=== PATIENT | female | born 2000 | race Caucasian/White ===

== ENCOUNTER 2025-04-25 08:56 | Outpatient (AMB) | payer BC, SELFPAY ==
[2025-04-25 09:21] VITALS: BP 110/72; PULSE 77; RESP 16; TEMP 36.6; O2SAT 98; BMI 24.6
--- NOTE | 2025-04-25 09:21 | AMB.OBINITIA ---
Vital Signs 04/25/25 09:21 Height 1.73 m Height Method Stated Weight 73.595 kg Weight Measurement Method Standing Scale BMI 24.6 BP 110/72 Blood Pressure Source Automatic Cuff Blood Pressure Location Right Upper Arm Position Sitting Respiration 16 Pulse 77 Pulse Source Monitor Temp 97.8 F Temp Source Oral Pulse Oximetry (%) 98 Oxygen Delivery Method Room Air Allergies/Home Meds Allergies & Medications Allergies No Known Allergies Allergy (Verified 04/25/25 09:23) Medication Reconciliation No Known Home Medications 04/25/25 [History Confirmed 04/25/25] Intake Visit Data Collection New Patient or Established: New Patient (never been to [facility]) Reason for Visit:: INITIAL CARE Seen by Clinical Staff ONLY (RN/MA): No Custom Protection Officer Required: No Do You Feel Safe at Home: Yes Authorities Contacted: N/A PCP or OBGYN visit in last 3 months: Yes Hx Now: Yes Are you currently on any form of Control: No Last menstrual period: 11/27/24 Pain Present Currently: No Pain Scale Used: Farah-Franklin/Numerical Pain scale:: 0 Smoking Status Smoking Status: Never smoker Questionnaires Covid-19 Vaccine Questionnaire Has patient been vacinated for Covid-19 Have you been vacinated for Covid-19: Yes PHQ-9 PHQ-2 Over the last 2 weeks, how often have you been bothered by any of the following problems? 1. Little interest or pleasure in doing things: not at all 2. Feeling down, depressed, or hopeless: not at all Total score: 0 PHQ-9 3. Trouble falling or staying asleep, or sleeping too much: Not at all 4. Feeling tired or having little energy: Not at all 5. Poor appetite or overeating: Not at all 6. Feeling bad about yourself - or that you are a failure or have let yourself or your family down: Not at all 7. Trouble concentrating on things, such as reading the newspaper or watching television: Not at all 8. Moving or speaking so slowly that other people could have noticed? - Or the opposite - being so fidgety or restless that you have been moving around a lot more than usual: not at all 9. Thoughts that you would be better off or of hurting yourself in some way: Not at all Total score: 0 Source: Developed by Drs. Cornelio Boggs, Rody Selby, Obie Veronica and colleagues, with an educational phillip from [employer]. 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 FOB not involved Tobacco History Smoking Status: Never smoker Second Hand Smoke Exposure: No Alcohol History Alcohol Intake: Never Domestic Abuse History Do You Feel Safe at Home: Yes History of Present Illness HPI Narrative The patient is a 25-year-old G2, P0010 presents as a transfer over OB care here . She was seeing a provider in [place] and was not happy with her care. She presents with her sister who was my patient in [place]. Patient states the father the baby is not going to be involved in this but she has good social support. 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 She reports good movement no bleeding no contractions. Her only chronic condition is chronic migraine headaches. Last menstrual period 11/27/2024. She had some type of miscarriage or termination in 2012 at 13 weeks. OB Ultrasound Indication Indication: Position, viability OB Ultrasound Ultrasound technique: transabdominal Gestational sac assessment: Presence, location, size, shape: Live intrauterine in the vertex presentation with cardiac activity noted at 147 bpm placenta anterior fundal OB Initial Visit OB Flowsheet OB Flowsheet Initial Weight: Not Recorded Date <del>?</del> EGA Weight BP Alb Glu CTX Pres Fundal ht FHR Mov Dilation Station Effacement Hx Notes Visit Note 04/25/25 <del>?</del> 21w 2d 73.595 kg 110/72 20 145 Transfer of care. Patient came from [place]. I have a 12-week ultrasound from an [facility] for a normal nuchal translucency and NIPT that is normal. I do not have any other lab work on her. She states it was drawn at [facility] Menstrual History Menstrual reliability: definite Flow: normal Menstrual regularity: regular Monthly: Yes Age at menarche: 13 On control pills at conception: No Other symptoms: VAGINAL DISCHARGE OB History : 2 Hx Total # of Abortions (Spontaneous & Elective): 1 Infection History & Risk Evaluation History of STDs: none Genetic Screening & History Genetic Screening/Teratology Counseling - Includes patient, baby's father, or anyone in either family with: 1. Patient's age 35 years or older as of estimated date of delivery: No 2. Thalassemia (Nauruan, Persian, Mediterranean, or Background); MCV less than 80: No 3. Neural Tube Defect (Meningomyelocele, Spina Bifida, or Anencephaly): No 4. Congenital Heart Defect: No 5. Down Syndrome: No 6. Adelso-Sachs (Ashkenazi Gnosticism, Cajun, Comoran Macedonian): No 7. Ina Disease (Ashkenazi Gnosticism): No 8. Familial Dysautonomia (Ashkenazi Gnosticism): No 9. Sickle Cell Disease or Trait (): No 10. Hemophilia or other blood disorders: No 11. Muscular Dystrophy: No 12. Cystic Fibrosis: No 13. Baker's Chorea: No 14. Mental Retardation/Autism: No 15. Other inherited genetic or chromosomal disorder: No 16. Maternal Metabolic Disorder (EG,TYPE 1 Diabetes, PKU): No 17. Patient or baby's father had a child with defects not listed above: No 18. Recurrent loss or a stillbirth: No 19. Medications (including supplements, vitamins, herbs or otc drugs)/illicit/recreational drugs/alcohol since last menstrual period: No 20. Any other: No Infection History 1. Live with someone with TB or exposed to TB: No 2. Rash or viral illness since last menstrual period: No 3. Hepatitis B,C: No Other (see comments) Source: [employer] Exam General Limitations: no limitations General Appearance: alert, in no apparent distress, comfortable, cooperative, healthy appearing, well developed and well groomed Neck Neck exam: Present normal inspection, full ROM and trachea midline Chest Chest inspection: Present normal inspection and symmetric chest wall rise Resp Respiratory exam: Present normal lung sounds bilaterally Card Cardiovascular exam: Present regular rate, normal rhythm and normal heart sounds Abdominal Abdominal exam: Present soft, normal bowel sounds and other (Fundal height 20) Psych Psychiatric exam: Present normal affect and normal mood Skin Skin exam: Present warm, dry, intact and normal color Office Procedures OB Clinic LOC & Office Proc's Nursing/Assessment Patient Status: Initial/New Patient OB Clinic Nursing Assessment: Medication Reconciliation, Update PMH in EMR and Vital Signs OB Clinic Coordination of Care: Complex Care and Chronic Disease 1-5, Consent,records obtained, informed consent, Education Simp Pt/Fam, Lab and Imaging orders, Results/Orders obtained and Staff clarify orders Special Needs: Heart tones New Patient Charge New Patient Point Assignment: [id number] New Patient Point Charge: HOG PUSHER Level 4 ([id number]) Bedside Ultrasounds US Transabdominal <14 weeks at bedside: Yes Assessment & Plan Diagnosis / Problem List (1) : Status: Acute Qualifiers: Weeks of gestation: 20 weeks Qualified Code(s): Z3A.20 - 20 weeks gestation of
== END 2025-04-25 09:51 | disposition home or self-care (01) ==
LOC: HODSOBC 08:56
PROVIDERS: Supervising Provider Obstetrics & Gynecology; Visit Provider Obstetrics & Gynecology
DX: Z34.82 Encounter for supervision of other normal pregnancy, second trimester (principal); Z3A.21 21 weeks gestation of pregnancy
CPT/HCPCS: 76801; 99204; G0463

== ENCOUNTER 2025-05-24 10:07 | Outpatient (AMB) | payer BC, SELFPAY ==
[2025-05-24 10:12] VITALS: BP 124/77; PULSE 101; RESP 17; TEMP 36.4; O2SAT 98; BMI 26.0
--- NOTE | 2025-05-24 10:12 | AMB.OBVISIT ---
Vital Signs 05/24/25 10:12 Height 1.73 m Height Method Measured Weight 77.791 kg Weight Measurement Method Standing Scale BMI 26.0 BP 124/77 Blood Pressure Source Automatic Cuff Blood Pressure Location Right Upper Arm Position Sitting Respiration 17 Pulse 101 H Pulse Source Monitor Temp 97.5 F Temp Source Temporal Artery Scan Pulse Oximetry (%) 98 Oxygen Delivery Method Room Air Allergies/Home Meds Allergies & Medications Allergies No Known Allergies Allergy (Verified 05/24/25 10:13) Medication Reconciliation mv-mn no.97-folic 180 mcg-dha 25 mg-herb no.293 25 mg chewable tablet (Alive Daily Support ) tab PO 05/24/25 [History Confirmed 05/24/25] Intake Visit Data Collection New Patient or Established: Established Patient (seen at [facility] within 3 years) Reason for Visit:: OBC Consent obtained for Telemed Visit: No Seen by Clinical Staff ONLY (RN/MA): No Cooker Casing Required: No Do You Feel Safe at Home: Yes Authorities Contacted: N/A PCP or OBGYN visit in last 3 months: Yes Date of Last PCP or OBGYN visit: 04/25/25 Hx Now: Yes Are you currently on any form of Control: No Pain Present Currently: No Pain Scale Used: Farah-Franklin/Numerical Pain scale:: 0 Smoking Status Smoking Status: Never smoker Questionnaires Covid-19 Vaccine Questionnaire Has patient been vacinated for Covid-19 Have you been vacinated for Covid-19: No PHQ-9 PHQ-2 Over the last 2 weeks, how often have you been bothered by any of the following problems? 1. Little interest or pleasure in doing things: not at all PHQ-9 8. Moving or speaking so slowly that other people could have noticed? - Or the opposite - being so fidgety or restless that you have been moving around a lot more than usual: not at all Source: Developed by Drs. Cornelio Boggs, Rody Selby, Obie Veronica and colleagues, with an educational phillip from [employer]. 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 Patient came from [place]. I have a 12-week ultrasound from an [facility] for a normal nuchal translucency and NIPT that is normal. I do not have any other lab work on her. She states it was drawn at [facility]. 05/24/25 <del>?</del> 25w 3d 77.791 kg 124/77 25 140 active Positive movement no contractions no loss some labs on the chart from [facility]. Do not have structural survey report from [place] at [facility]. PAUL Calculator Estimated Delivery Date Method Current WG Current Estimate 09/03/25 Ultrasound #1 25w 3d Other Estimates 09/03/25 LMP (Certain) 25w 3d Specific Issue/Plans -0-1-0 Notes Visit Date: 05/24/25 Last Updated by: Andria Corea (OB Clinic)MD Notes on the chart from [facility] reviewed today: A+/ all thyroid normal hemoglobin was 12.7 GC chlamydia negative Visit Date: 04/25/25 Last Updated by: Andria Corea (OB Clinic)MD Father patient is a -0-1-0 status post SAB versus TAB at 13 weeks in the past. 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 She has good social support with her family and her sisters. I do not have any labs on her except for a normal NIPT and a normal 12-week NT. Office Procedures OB Clinic LOC & Office Proc's Nursing/Assessment Patient Status: Established Patient OB Clinic Nursing Assessment: Medication Reconciliation, Update PMH in EMR and Vital Signs OB Clinic Coordination of Care: Complex Care and Chronic Disease 1-5, Consent,records obtained, informed consent, Lab and Imaging orders and Results/Orders obtained Special Needs: Heart tones Established Patient Charge Established Patient Point Assignment: 110 Established Patient Point Charge: EP Level 3 (80-115) Assessment & Plan Diagnosis / Problem List (1) : Status: Acute Qualifiers: Weeks of gestation: 25 weeks Qualified Code(s): Z3A.25 - 25 weeks gestation of Assessment and Plan: Need all labs ordered. Need glucose challenge test ordered continued results from [place] [facility] on 20-week ultrasound. She did have an NIPT that is 46 XY.
== END 2025-05-24 10:35 | disposition home or self-care (01) ==
LOC: HODSOBC 10:07
PROVIDERS: Supervising Provider Obstetrics & Gynecology; Visit Provider Obstetrics & Gynecology
DX: Z34.82 Encounter for supervision of other normal pregnancy, second trimester (principal); Z3A.25 25 weeks gestation of pregnancy
CPT/HCPCS: 99213; G0463

== ENCOUNTER 2025-06-22 14:47 | Outpatient (AMB) | payer BC, SELFPAY ==
[2025-06-22 15:16] VITALS: BP 119/73; PULSE 91; RESP 17; TEMP 36.5; O2SAT 98; BMI 27.4
--- NOTE | 2025-06-22 15:16 | OBCLNT_ITS ---
Vital Signs 06/22/25 15:16 Height 1.73 m Height Method Stated Weight 82.27 kg Weight Measurement Method Standing Scale BMI 27.4 BP 119/73 Blood Pressure Source Automatic Cuff Blood Pressure Location Right Upper Arm Position Sitting Respiration 17 Pulse 91 Pulse Source Monitor Temp 97.7 F Temp Source Temporal Artery Scan Pulse Oximetry (%) 98 Oxygen Delivery Method Room Air Allergies/Home Meds Allergies & Medications Allergies No Known Allergies Allergy (Verified 06/22/25 15:18) Medication Reconciliation mv-mn no.97-folic 180 mcg-dha 25 mg-herb no.293 25 mg chewable tablet (Alive Daily Support ) tab PO 05/24/25 [History Confirmed 06/22/25] Intake Visit Data Collection New Patient or Established: Established Patient (seen at [facility] within 3 years) Reason for Visit:: OBC 29W4D Seen by Clinical Staff ONLY (RN/MA): No Tower Control Operator Required: No Do You Feel Safe at Home: Yes Authorities Contacted: N/A PCP or OBGYN visit in last 3 months: Yes Date of Last PCP or OBGYN visit: 05/24/25 Hx Now: Yes Are you currently on any form of Control: No Pain Present Currently: No Pain Scale Used: Farah-Franklin/Numerical Pain scale:: 0 Smoking Status Smoking Status: Never smoker Questionnaires Covid-19 Vaccine Questionnaire Has patient been vacinated for Covid-19 Have you been vacinated for Covid-19: No PHQ-9 PHQ-2 Over the last 2 weeks, how often have you been bothered by any of the following problems? 1. Little interest or pleasure in doing things: not at all 2. Feeling down, depressed, or hopeless: not at all Total score: 0 PHQ-9 3. Trouble falling or staying asleep, or sleeping too much: Not at all 4. Feeling tired or having little energy: Not at all 5. Poor appetite or overeating: Not at all 6. Feeling bad about yourself - or that you are a failure or have let yourself or your family down: Not at all 7. Trouble concentrating on things, such as reading the newspaper or watching television: Not at all 8. Moving or speaking so slowly that other people could have noticed? - Or the opposite - being so fidgety or restless that you have been moving around a lot more than usual: not at all 9. Thoughts that you would be better off or of hurting yourself in some way: Not at all Total score: 0 If you checked off any problems, how difficult have these problems made it for you to do your work, take care of things at home, or get along with other people?: not difficult at all Source: Developed by Drs. Cornelio Boggs, Rody Selby, Obie Veronica and colleagues, with an educational phillip from [employer]. 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 Patient came from [place]. I have a 12-week ultrasound from an [facility] for a normal nuchal translucency and NIPT that is normal. I do not have any other lab work on her. She states it was drawn at [facility]. 05/24/25 -?-?-?-?-?-?-?-?-?-?-?-?- 25w 3d 77.791 kg 124/77 25 140 active Positive movement no contractions no loss some labs on the chart from [facility]. Do not have structural survey report from [place] at [facility]. 06/22/25 -?-?-?-?-?-?-?-?-?-?-?-?- 29w 4d 82.27 kg 119/73 29 137 active Patient present with her mother today. Good movem ent no contractions no loss of fluids PAUL Calculator Estimated Delivery Date Method Current WG Current Estimate 09/03/25 Ultrasound #1 29w 4d Other Estimates 09/03/25 LMP (Certain) 29w 4d Expected Delivery Route/Plan Unexpected FOB not involved Good social support with her sister and her mother Patient wants to try to go natural labor without an epidural. Specific Issue/Plans -0-1-0 First visit at about 12 weeks in [place]. Notes Visit Date: 06/22/25 Last Updated by: Andria Corea (OB Clinic)MD Patient states she wants to go natural in labor. Discussed natural labor/ Hep-Lock/ ambulating/ labor ball. Also discussed being flexible in labor. Discussed epidural and side effects also fentanyl for pain control in labor. Patient will get her glucose test. As her first doctor in [place] for some reason did not order all her labs except a blood type and thyroid levels and hemoglobin A1c and GC chlamydia, I will reorder all missing labs at [facility]. I will perform an ultrasound approximately 36 weeks to check size. I was able to get a hold of her ultrasound from [facility] revealing on 04/26/2025 revealing a live IUP 20 weeks 5 days EDC 09/08/2025. Visit Date: 05/24/25 Last Updated by: Andria Corea (OB Clinic)MD Notes on the chart from [facility] reviewed today: A+/ all thyroid normal hemoglobin was 12.7 GC chlamydia negative Visit Date: 04/25/25 Last Updated by: Andria Corea (OB Clinic)MD Father patient is a -0-1-0 status post SAB versus TAB at 13 weeks in the past. 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 She has good social support with her family and her sisters. I do not have any labs on her except for a normal NIPT and a normal 12-week NT. Office Procedures OB Clinic LOC & Office Proc's Nursing/Assessment Patient Status: Established Patient OB Clinic Nursing Assessment: Medication Reconciliation, Update PMH in EMR and Vital Signs OB Clinic Coordination of Care: Complex Care and Chronic Disease 1-5, Consent,records obtained, informed consent, Education Simp Pt/Fam and Staff clarify orders Special Needs: Heart tones Established Patient Charge Established Patient Point Assignment: 115 Established Patient Point Charge: EP Level 3 (80-115)
== END 2025-06-22 15:58 | disposition home or self-care (01) ==
LOC: HODSOBC 14:47
PROVIDERS: PCP Obstetrics & Gynecology; Referring Provider Obstetrics & Gynecology; Supervising Provider Obstetrics & Gynecology; Visit Provider Obstetrics & Gynecology
DX: Z34.83 Encounter for supervision of other normal pregnancy, third trimester (principal); Z3A.29 29 weeks gestation of pregnancy
CPT/HCPCS: 99213; G0463

== ENCOUNTER 2025-07-06 14:01 | Outpatient (AMB) | payer BC, SELFPAY ==
[2025-07-06 14:07] VITALS: BP 123/77; PULSE 104; RESP 17; TEMP 36.6; O2SAT 97; BMI 27.7
--- NOTE | 2025-07-06 14:07 | AMB.OBVISIT ---
Vital Signs 07/06/25 14:07 Height 1.73 m Height Method Measured Weight 83.007 kg Weight Measurement Method Standing Scale BMI 27.7 BP 123/77 Blood Pressure Source Automatic Cuff Blood Pressure Location Right Upper Arm Position Sitting Respiration 17 Pulse 104 H Pulse Source Monitor Temp 97.8 F Temp Source Temporal Artery Scan Pulse Oximetry (%) 97 Oxygen Delivery Method Room Air Allergies/Home Meds Allergies & Medications Allergies No Known Allergies Allergy (Verified 07/06/25 14:08) Medication Reconciliation mv-mn no.97-folic 180 mcg-dha 25 mg-herb no.293 25 mg chewable tablet (Alive Daily Support ) tab PO 05/24/25 [History Confirmed 07/06/25] Intake Visit Data Collection New Patient or Established: Established Patient (seen at [facility] within 3 years) Reason for Visit:: OBC Consent obtained for Telemed Visit: No Seen by Clinical Staff ONLY (RN/MA): No Steeler Required: No Do You Feel Safe at Home: Yes Authorities Contacted: N/A PCP or OBGYN visit in last 3 months: Yes Date of Last PCP or OBGYN visit: 06/22/25 Hx Now: Yes Are you currently on any form of Control: No Pain Present Currently: No Pain Scale Used: Farah-Franklin/Numerical Pain scale:: 0 Smoking Status Smoking Status: Never smoker Questionnaires PHQ-9 PHQ-2 Over the last 2 weeks, how often have you been bothered by any of the following problems? 1. Little interest or pleasure in doing things: not at all PHQ-9 8. Moving or speaking so slowly that other people could have noticed? - Or the opposite - being so fidgety or restless that you have been moving around a lot more than usual: not at all Source: Developed by Drs. Cornelio Boggs, Rody Selby, Obie Veronica and colleagues, with an educational phillip from [employer]. 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 Patient came from [place]. I have a 12-week ultrasound from an [facility] for a normal nuchal translucency and NIPT that is normal. I do not have any other lab work on her. She states it was drawn at [facility]. 05/24/25 <del>?</del> 25w 3d 77.791 kg 124/77 25 140 active Positive movement no contractions no loss some labs on the chart from [facility]. Do not have structural survey report from [place] at [facility]. 06/22/25 <del>?</del> 29w 4d 82.27 kg 119/73 29 137 active Patient present with her mother today. Good movement no contractions no loss of fluids 07/06/25 <del>?</del> 31w 4d 83.007 kg 123/77 31 145 active Good movement. No contractions no bleeding Patient will have her mother and possibly assist her in labor with her. PAUL Calculator Estimated Delivery Date Method Current WG Current Estimate 09/03/25 Ultrasound #1 31w 4d Other Estimates 09/03/25 LMP (Certain) 31w 4d Expected Delivery Route/Plan Unexpected FOB not involved Good social support with her sister and her mother Patient wants to try to go natural labor without an epidural. Specific Issue/Plans -0-1-0 First visit at about 12 weeks in [place]. A positive\antibody negative\thyroid levels normal\GC negative\chlamydia negative\[place] [facility] 04/26/2025 live IUP 20 weeks 5 days EDC 09/08/2025 Notes Visit Date: 07/06/25 Last Updated by: Andria Corea (OB Clinic)MD Patient tried to get her labs done at [facility] and could not get in twice. She made an appointment for an week to get her 1 hour glucose done and all her labs done. She will be approximately 32 weeks by then. Visit Date: 06/22/25 Last Updated by: Andria Corea (OB Clinic)MD Patient states she wants to go natural in labor. Discussed natural labor/ Hep-Lock/ ambulating/ labor ball. Also discussed being flexible in labor. Discussed epidural and side effects also fentanyl for pain control in labor. Patient will get her glucose test. As her first doctor in [place] for some reason did not order all her labs except a blood type and thyroid levels and hemoglobin A1c and GC chlamydia, I will reorder all missing labs at [facility]. I will perform an ultrasound approximately 36 weeks to check size. I was able to get a hold of her ultrasound from [facility] revealing on 04/26/2025 revealing a live IUP 20 weeks 5 days EDC 09/08/2025. Visit Date: 05/24/25 Last Updated by: Andria Corea (OB Clinic)MD Notes on the chart from [facility] reviewed today: A+/ all thyroid normal hemoglobin was 12.7 GC chlamydia negative Visit Date: 04/25/25 Last Updated by: Andria Corea (OB Clinic)MD Father patient is a -0-1-0 status post SAB versus TAB at 13 weeks in the past. 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 She has good social support with her family and her sisters. I do not have any labs on her except for a normal NIPT and a normal 12-week NT. Office Procedures OB Clinic LOC & Office Proc's Nursing/Assessment Patient Status: Established Patient OB Clinic Nursing Assessment: Medication Reconciliation, Update PMH in EMR and Vital Signs OB Clinic Coordination of Care: Complex Care and Chronic Disease 1-5, Consent,records obtained, informed consent, Education Simp Pt/Fam and Results/Orders obtained Special Needs: Heart tones Established Patient Charge Established Patient Point Assignment: 110 Established Patient Point Charge: EP Level 3 (80-115)
== END 2025-07-06 14:38 | disposition home or self-care (01) ==
LOC: HODSOBC 14:01
PROVIDERS: Supervising Provider Obstetrics & Gynecology; Visit Provider Obstetrics & Gynecology
DX: Z34.83 Encounter for supervision of other normal pregnancy, third trimester (principal); Z3A.31 31 weeks gestation of pregnancy
CPT/HCPCS: 99213; G0463

== ENCOUNTER 2025-07-20 13:12 | Outpatient (AMB) | payer BC, SELFPAY ==
[2025-07-20 13:21] VITALS: BP 112/70; PULSE 98; RESP 18; TEMP 36.3; O2SAT 98; BMI 28.3
--- NOTE | 2025-07-20 13:21 | AMB.OBVISIT ---
Vital Signs 07/20/25 13:21 Height 1.73 m Height Method Stated Weight 84.822 kg Weight Measurement Method Standing Scale BMI 28.3 BP 112/70 Blood Pressure Source Automatic Cuff Blood Pressure Location Left Upper Arm Position Sitting Respiration 18 Pulse 98 Pulse Source Monitor Temp 97.4 F Temp Source Oral Pulse Oximetry (%) 98 Oxygen Delivery Method Room Air Allergies/Home Meds Allergies & Medications Allergies No Known Allergies Allergy (Verified 07/20/25 13:22) Medication Reconciliation mv-mn no.97-folic 180 mcg-dha 25 mg-herb no.293 25 mg chewable tablet (Alive Daily Support ) tab PO 05/24/25 [History Confirmed 07/20/25] Intake Visit Data Collection New Patient or Established: Established Patient (seen at [facility] within 3 years) Reason for Visit:: CARE Seen by Clinical Staff ONLY (RN/MA): No Register Clerk Required: No Do You Feel Safe at Home: Yes Authorities Contacted: N/A PCP or OBGYN visit in last 3 months: Yes Hx Now: Yes Are you currently on any form of Control: No Pain Present Currently: No Pain Scale Used: Farah-Franklin/Numerical Pain scale:: 0 Smoking Status Smoking Status: Never smoker Questionnaires Covid-19 Vaccine Questionnaire Has patient been vacinated for Covid-19 Have you been vacinated for Covid-19: Yes PHQ-9 PHQ-2 Over the last 2 weeks, how often have you been bothered by any of the following problems? 1. Little interest or pleasure in doing things: not at all 2. Feeling down, depressed, or hopeless: not at all Total score: 0 PHQ-9 3. Trouble falling or staying asleep, or sleeping too much: Not at all 4. Feeling tired or having little energy: Not at all 5. Poor appetite or overeating: Not at all 6. Feeling bad about yourself - or that you are a failure or have let yourself or your family down: Not at all 7. Trouble concentrating on things, such as reading the newspaper or watching television: Not at all 8. Moving or speaking so slowly that other people could have noticed? - Or the opposite - being so fidgety or restless that you have been moving around a lot more than usual: not at all 9. Thoughts that you would be better off or of hurting yourself in some way: Not at all Total score: 0 Source: Developed by Drs. Cornelio Boggs, Rody Selby, Obie Veronica and colleagues, with an educational phillip from [employer]. 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 Patient came from [place]. I have a 12-week ultrasound from an [facility] for a normal nuchal translucency and NIPT that is normal. I do not have any other lab work on her. She states it was drawn at [facility]. 05/24/25 <del>?</del> 25w 3d 77.791 kg 124/77 25 140 active Positive movement no contractions no loss some labs on the chart from [facility]. Do not have structural survey report from [place] at [facility]. 06/22/25 <del>?</del> 29w 4d 82.27 kg 119/73 29 137 active Patient present with her mother today. Good movement no contractions no loss of fluids 07/06/25 <del>?</del> 31w 4d 83.007 kg 123/77 31 145 active Good movement. No contractions no bleeding Patient will have her mother and possibly assist her in labor with her. 07/20/25 <del>?</del> 33w 4d 84.822 kg 112/70 absent 34 145 active Good movement no contractions no loss of fluids Patient's mother and sister will be in labor with her. PAUL Calculator Estimated Delivery Date Method Current WG Current Estimate 09/03/25 Ultrasound #1 33w 4d Other Estimates 09/03/25 LMP (Certain) 33w 4d Expected Delivery Route/Plan Unexpected FOB not involved Good social support with her sister and her mother Patient wants to try to go natural labor without an epidural. Specific Issue/Plans -0-1-0 First visit at about 12 weeks in [place]. A positive\antibody negative\thyroid levels normal\GC negative\chlamydia negative\[place] [facility] 04/26/2025 live IUP 20 weeks 5 days EDC 09/08/2025 1 hour glucose 131/rubella immune/RPR nonreactive/HIV negative/hepatitis B surface antigen negative/hepatitis C negative Notes Visit Date: 07/20/25 Last Updated by: Andria Corea (OB Clinic)MD Patient told me her mother has metastatic breast cancer with recurrence. Her mother was checked for BRCA1 BRCA2 and is negative. Her labs from [facility] are reviewed with her. These are dated from 825 her glucose 1 hour is 131 she is rubella immune RPR nonreactive HIV negative hepatitis B surface antigen negative and hepatitis C negative. 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 She has 1-2+ pedal edema. Preeclamptic signs and symptoms were discussed in detail. Visit Date: 07/06/25 Last Updated by: Andria Corea (OB Clinic)MD Patient tried to get her labs done at [facility] and could not get in twice. She made an appointment for an week to get her 1 hour glucose done and all her labs done. She will be approximately 32 weeks by then. Visit Date: 06/22/25 Last Updated by: Andria Corea (OB Clinic)MD Patient states she wants to go natural in labor. Discussed natural labor/ Hep-Lock/ ambulating/ labor ball. Also discussed being flexible in labor. Discussed epidural and side effects also fentanyl for pain control in labor. Patient will get her glucose test. As her first doctor in [place] for some reason did not order all her labs except a blood type and thyroid levels and hemoglobin A1c and GC chlamydia, I will reorder all missing labs at [facility]. I will perform an ultrasound approximately 36 weeks to check size. I was able to get a hold of her ultrasound from [facility] revealing on 04/26/2025 revealing a live IUP 20 weeks 5 days EDC 09/08/2025. Visit Date: 05/24/25 Last Updated by: Andria Corea (OB Clinic)MD Notes on the chart from [facility] reviewed today: A+/ all thyroid normal hemoglobin was 12.7 GC chlamydia negative Visit Date: 04/25/25 Last Updated by: Andria Corea (OB Clinic)MD Father patient is a -0-1-0 status post SAB versus TAB at 13 weeks in the past. 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 Father the baby will not be involved in [place]. She has good social support with her family and her sisters. I do not have any labs on her except for a normal NIPT and a normal 12-week NT. Office Procedures OB Clinic LOC & Office Proc's Nursing/Assessment Patient Status: Established Patient OB Clinic Nursing Assessment: Medication Reconciliation, Update PMH in EMR and Vital Signs OB Clinic Coordination of Care: Complex Care and Chronic Disease 1-5, Consent,records obtained, informed consent, Education Simp Pt/Fam, Lab and Imaging orders, Results/Orders obtained and Staff clarify orders Special Needs: Heart tones Established Patient Charge Established Patient Point Assignment: 135 Established Patient Point Charge: EP Level 4 (120-155) Assessment & Plan Diagnosis / Problem List (1) : Status: Acute Qualifiers: Weeks of gestation: 33 weeks Qualified Code(s): Z3A.33 - 33 weeks gestation of Plan: All lab work up-to-date. Orders ultrasound in [facility] imaging to check size and dates in 2 weeks. Additional Plan Follow Up: 2 Weeks
== END 2025-07-20 14:09 | disposition home or self-care (01) ==
LOC: HODSOBC 13:12
PROVIDERS: Supervising Provider Obstetrics & Gynecology; Visit Provider Obstetrics & Gynecology
DX: Z34.83 Encounter for supervision of other normal pregnancy, third trimester (principal); Z3A.33 33 weeks gestation of pregnancy
CPT/HCPCS: 99214; G0463

== ENCOUNTER 2025-08-03 14:46 | Outpatient (AMB) | payer BC, SELFPAY ==
[2025-08-03 15:02] VITALS: BP 112/74; PULSE 91; RESP 18; TEMP 36.7; O2SAT 98; BMI 29.0
--- NOTE | 2025-08-03 15:02 | OBCLNT_ITS ---
Vital Signs 08/03/25 15:02 Height 1.73 m Height Method Stated Weight 86.806 kg Weight Measurement Method Standing Scale BMI 29.0 BP 112/74 Blood Pressure Source Automatic Cuff Blood Pressure Location Left Upper Arm Position Sitting Respiration 18 Pulse 91 Pulse Source Monitor Temp 98.1 F Temp Source Oral Pulse Oximetry (%) 98 Oxygen Delivery Method Room Air Allergies/Home Meds Allergies & Medications Allergies No Known Allergies Allergy (Verified 08/03/25 15:03) Medication Reconciliation No Known Home Medications 08/03/25 [History Confirmed 08/03/25] Intake Visit Data Collection New Patient or Established: Established Patient (seen at [facility] within 3 years) Reason for Visit:: CARE Seen by Clinical Staff ONLY (RN/MA): No Merchandising Manager Required: No Do You Feel Safe at Home: Yes Authorities Contacted: N/A PCP or OBGYN visit in last 3 months: Yes Hx Now: Yes Are you currently on any form of Control: No Pain Present Currently: No Pain Scale Used: Farah-Franklin/Numerical Pain scale:: 0 Smoking Status Smoking Status: Never smoker Questionnaires Covid-19 Vaccine Questionnaire Has patient been vacinated for Covid-19 Have you been vacinated for Covid-19: Yes PHQ-9 PHQ-2 Over the last 2 weeks, how often have you been bothered by any of the following problems? 1. Little interest or pleasure in doing things: not at all 2. Feeling down, depressed, or hopeless: not at all Total score: 0 PHQ-9 3. Trouble falling or staying asleep, or sleeping too much: Not at all 4. Feeling tired or having little energy: Not at all 5. Poor appetite or overeating: Not at all 6. Feeling bad about yourself - or that you are a failure or have let yourself or your family down: Not at all 7. Trouble concentrating on things, such as reading the newspaper or watching television: Not at all 8. Moving or speaking so slowly that other people could have noticed? - Or the opposite - being so fidgety or restless that you have been moving around a lot more than usual: not at all 9. Thoughts that you would be better off or of hurting yourself in some way: Not at all Total score: 0 Source: Developed by Drs. Cornelio Boggs, Rody Selby, Obie Veronica and colleagues, with an educational phillip from [employer]. 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 Patient came from [place]. I have a 12-week ultrasound from an [facility] for a normal nuchal translucency and NIPT that is normal. I do not have any other lab work on her. She states it was drawn at [facility]. 05/24/25 -?-?-?-?-?-?-?-?-?-?-?-?- 25w 3d 77.791 kg 124/77 25 140 active Positive movement no contractions no loss some labs on the chart from [facility]. Do not have structural survey report from [place] at [facility]. 06/22/25 -?-?-?-?-?-?-?-?-?-?-?-?- 29w 4d 82.27 kg 119/73 29 137 active Patient present with her mother today. Good movem ent no contractions no loss of fluids 07/06/25 -?-?-?-?-?-?-?-?-?-?-?-?- 31w 4d 83.007 kg 123/77 31 145 active Good movement. No contractions no bleeding Patient will have her mother and possibly assist her in labor with her. 07/20/25 -?-?-?-?-?-?-?-?-?-?-?-?- 33w 4d 84.822 kg 112/70 absent 34 145 ac tive Good movement no contractions no loss of fluids P philip's mother and sister will be in labor with her. 08/03/25 -?-?-?-?-?-?-?-?-?-?-?-?- 35w 4d 86.806 kg 112/74 occasional 35 165 active Good movement no contractions or loss of fluids P philip is a bit congested PAUL Calculator Estimated Delivery Date Method Current WG Current Estimate 09/03/25 Ultrasound #1 35w 4d Other Estimates 09/03/25 LMP (Certain) 35w 4d Expected Delivery Route/Plan Unexpected FOB not involved Good social support with her sister and her mother Patient wants to try to go natural labor without an epidural. Specific Issue/Plans -0-1-0 First visit at about 12 weeks in [place]. A +\antibody negative\thyroid levels normal\GC negative\chlamydia negative\ [place] [facility] 04/26/2025 live IUP 20 weeks 5 days EDC 09/08/2025 1 hour glucose 131/rubella immune/RPR nonreactive/HIV negative/hepatitis B surface antigen negative/hepatitis C negative Notes Visit Date: 08/03/25 Last Updated by: Andria Corea (OB Clinic)MD The patient states her nose is stuffy and it is hard for her to sleep secondary to congestion. We did discuss taking Benadryl before bed and using Flonase. Patient did not want to not want to try anything before talking to me. If she is has seasonal allergies that she can take a Claritin-D daily. During the day if she does not have allergies she could try Sudafed. She denies fevers chills or cough. Visit Date: 07/20/25 Last Updated by: Andria Corea (OB Clinic)MD Patient told me her mother has metastatic breast cancer with recurrence. Her mother was checked for BRCA1 BRCA2 and is negative. Her labs from [facility] are reviewed with her. These are dated from 825 her glucose 1 hour is 131 she is rubella immune RPR nonreactive HIV negative hepatitis B surface antigen negative and hepatitis C negative. 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 She has 1-2+ pedal edema. Preeclamptic signs and symptoms were discussed in detail. Visit Date: 07/06/25 Last Updated by: Andria Corea (OB Clinic)MD Patient tried to get her labs done at [facility] and could not get in twice. She made an appointment for an week to get her 1 hour glucose done and all her labs done. She will be approximately 32 weeks by then. Visit Date: 06/22/25 Last Updated by: Andria Corea (OB Clinic)MD Patient states she wants to go natural in labor. Discussed natural labor/ Hep-Lock/ ambulating/ labor ball. Also discussed being flexible in labor. Discussed epidural and side effects also fentanyl for pain control in labor. Patient will get her glucose test. As her first doctor in [place] for some reason did not order all her labs except a blood type and thyroid levels and hemoglobin A1c and GC chlamydia, I will reorder all missing labs at [facility]. I will perform an ultrasound approximately 36 weeks to check size. I was able to get a hold of her ultrasound from [facility] revealing on 04/26/2025 revealing a live IUP 20 weeks 5 days EDC 09/08/2025. Visit Date: 05/24/25 Last Updated by: Andria Corea (OB Clinic)MD Notes on the chart from [facility] reviewed today: A+/ all thyroid normal hemoglobin was 12.7 GC chlamydia negative Visit Date: 04/25/25 Last Updated by: Andria Corea (OB Clinic)MD Father patient is a -0-1-0 status post SAB versus TAB at 13 weeks in the past. 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 Father the baby will not be involved in [place]. She has good social support with her family and her sisters. I do not have any labs on her except for a normal NIPT and a normal 12-week NT. Office Procedures OB Clinic LOC & Office Proc's Nursing/Assessment Patient Status: Established Patient OB Clinic Nursing Assessment: Medication Reconciliation, Update PMH in EMR and Vital Signs OB Clinic Coordination of Care: Complex Care and Chronic Disease 1-5, Consent,records obtained, informed consent, Education Simp Pt/Fam, Lab and Imaging orders, Results/Orders obtained and Staff clarify orders Special Needs: Heart tones Established Patient Charge Established Patient Point Assignment: 135 Established Patient Point Charge: EP Level 4 (120-155) Assessment & Plan Diagnosis / Problem List (1) : Status: Acute Qualifiers: Weeks of gestation: 35 weeks Qualified Code(s): Z3A.35 - 35 weeks gestation of
== END 2025-08-03 16:19 | disposition home or self-care (01) ==
LOC: HODSOBC 14:46
PROVIDERS: Supervising Provider Obstetrics & Gynecology; Visit Provider Obstetrics & Gynecology
DX: O09.893 Supervision of other high risk pregnancies, third trimester (principal); O99.891 Other specified diseases and conditions complicating pregnancy; R09.81 Nasal congestion; Z3A.35 35 weeks gestation of pregnancy
CPT/HCPCS: 99214; G0463

== ENCOUNTER 2025-08-12 15:06 | Outpatient (AMB) | payer BC, SELFPAY ==
[2025-08-12 15:19] VITALS: BP 126/80; PULSE 80; RESP 16; TEMP 36.8; O2SAT 98; BMI 29.1
--- NOTE | 2025-08-12 15:19 | OBCLNT_ITS ---
Vital Signs 08/12/25 15:19 Height 1.73 m Height Method Stated Weight 87.146 kg Weight Measurement Method Standing Scale BMI 29.1 BP 126/80 Blood Pressure Source Automatic Cuff Blood Pressure Location Left Upper Arm Position Sitting Respiration 16 Pulse 80 Pulse Source Monitor Temp 98.2 F Temp Source Oral Pulse Oximetry (%) 98 Oxygen Delivery Method Room Air Allergies/Home Meds Allergies & Medications Allergies No Known Allergies Allergy (Verified 08/12/25 15:20) Medication Reconciliation No Known Home Medications 08/03/25 [History Confirmed 08/12/25] Intake Visit Data Collection New Patient or Established: Established Patient (seen at [facility] within 3 years) Reason for Visit:: OBC Surveillance Sensor Officer Required: No Do You Feel Safe at Home: Yes Authorities Contacted: N/A PCP or OBGYN visit in last 3 months: Yes Date of Last PCP or OBGYN visit: 08/03/25 Hx Now: Yes Are you currently on any form of Control: No Pain Present Currently: No Pain Scale Used: Farah-Franklin/Numerical Pain scale:: 0 Smoking Status Smoking Status: Never smoker Questionnaires Covid-19 Vaccine Questionnaire Has patient been vacinated for Covid-19 Have you been vacinated for Covid-19: Yes PHQ-9 PHQ-2 Over the last 2 weeks, how often have you been bothered by any of the following problems? 1. Little interest or pleasure in doing things: not at all 2. Feeling down, depressed, or hopeless: not at all Total score: 0 PHQ-9 3. Trouble falling or staying asleep, or sleeping too much: Not at all 4. Feeling tired or having little energy: Not at all 5. Poor appetite or overeating: Not at all 6. Feeling bad about yourself - or that you are a failure or have let yourself or your family down: Not at all 7. Trouble concentrating on things, such as reading the newspaper or watching television: Not at all 8. Moving or speaking so slowly that other people could have noticed? - Or the opposite - being so fidgety or restless that you have been moving around a lot more than usual: not at all 9. Thoughts that you would be better off or of hurting yourself in some way: Not at all Total score: 0 If you checked off any problems, how difficult have these problems made it for you to do your work, take care of things at home, or get along with other people?: not difficult at all Source: Developed by Drs. Cornelio Boggs, Rody Selby, Obie Veronica and colleagues, with an educational phillip from [employer]. 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 FOB not involved Tobacco History Smoking Status: Never smoker Second Hand Smoke Exposure: No Alcohol History Alcohol Intake: Never Domestic Abuse History Do You Feel Safe at Home: Yes Care OB Visit Log OB Flowsheet Initial Weight: Not Recorded Date -?-?-?-?-?-?-?-?-?-?-?-?- EGA Weight BP Alb Glu CTX Pres Fundal ht FHR Mov Dilation Station Effacement Hx Notes Visit Note 04/25/25 -?-?-?-?-?-?-?-?-?-?-?-?- 21w 2d 73.595 kg 110/72 20 145 Transfer of care. Patient came from [place]. I have a 12-week ultrasound from an [facility] for a normal nuchal translucency and NIPT that is normal. I do not have any other lab work on her. She states it was drawn at [email or web address]. 05/24/25 -?-?-?-?-?-?-?-?-?-?-?-?- 25w 3d 77.791 kg 124/77 25 140 active Positive movement no contractions no loss some labs on the chart from [email or web address]. Do not have structural survey report from Chris at [facility]. 06/22/25 -?-?-?-?-?-?-?-?-?-?-?-?- 29w 4d 82.27 kg 119/73 29 137 active Patient present with her mother today. Good movem ent no contractions no loss of fluids 07/06/25 -?-?-?-?-?-?-?-?-?-?-?-?- 31w 4d 83.007 kg 123/77 31 145 active Good movement. No contractions no bleeding Patient will have her mother and possibly assist her in labor with her. 07/20/25 -?-?-?-?-?-?-?-?-?-?-?-?- 33w 4d 84.822 kg 112/70 absent 34 145 ac tive Good movement no contractions no loss of fluids P philip's mother and sister will be in labor with her. 08/03/25 -?-?-?-?-?-?-?-?-?-?-?-?- 35w 4d 86.806 kg 112/74 occasional 35 165 active Good movement no contractions or loss of fluids P philip is a bit congested 08/12/25 -?-?-?-?-?-?-?-?-?-?-?-?- 36w 6d 87.146 kg 126/80 occasional 37 167 active 1 -2 75 Good movement no contractions or vaginal bleeding Good movement no contractions or vaginal bleeding GB BS cx done Discussed labor and kick counts. PAUL Calculator Estimated Delivery Date Method Current WG Current Estimate 09/03/25 Ultrasound #1 36w 6d Other Estimates 09/03/25 LMP (Certain) 36w 6d Expected Delivery Route/Plan Unexpected FOB not involved Good social support with her sister and her mother Patient wants to try to go natural labor without an epidural. Specific Issue/Plans -0-1-0 First visit at about 12 weeks in [place]. A +\antibody negative\thyroid levels normal\GC negative\chlamydia negative\[place] [facility] 04/26/2025 live IUP 20 weeks 5 days EDC 09/08/2025 1 hour glucose 131/rubella immune/RPR nonreactive/HIV negative/hepatitis B surface antigen negative/hepatitis C negative Notes Visit Date: 08/03/25 Last Updated by: Andria Corea (OB Clinic)MD The patient states her nose is stuffy and it is hard for her to sleep secondary to congestion. We did discuss taking Benadryl before bed and using Flonase. Patient did not want to not want to try anything before talking to me. If she is has seasonal allergies that she can take a Claritin-D daily. During the day if she does not have allergies she could try Sudafed. She denies fevers chills or cough. Visit Date: 07/20/25 Last Updated by: Andria Corea (OB Clinic)MD Patient told me her mother has metastatic breast cancer with recurrence. Her mother was checked for BRCA1 BRCA2 and is negative. Her labs from [facility] are reviewed with her. These are dated from 825 her glucose 1 hour is 131 she is rubella immune RPR nonreactive HIV negative hepatitis B surface antigen negative and hepatitis C negative. 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 She has 1-2+ pedal edema. Preeclamptic signs and symptoms were discussed in detail. Visit Date: 07/06/25 Last Updated by: Andria Corea (OB Clinic)MD Patient tried to get her labs done at [facility] and could not get in twice. She made an appointment for an week to get her 1 hour glucose done and all her labs done. She will be approximately 32 weeks by then. Visit Date: 06/22/25 Last Updated by: Andria Corea (OB Clinic)MD Patient states she wants to go natural in labor. Discussed natural labor/ Hep-Lock/ ambulating/ labor ball. Also discussed being flexible in labor. Discussed epidural and side effects also fentanyl for pain control in labor. Patient will get her glucose test. As her first doctor in [place] for some reason did not order all her labs except a blood type and thyroid levels and hemoglobin A1c and GC chlamydia, I will reorder all missing labs at [facility]. I will perform an ultrasound approximately 36 weeks to check size. I was able to get a hold of her ultrasound from [facility] imaging revealing on 04/26/2025 revealing a live IUP 20 weeks 5 days EDC 09/08/2025. Visit Date: 05/24/25 Last Updated by: Andria Corea (OB Clinic)MD Notes on the chart from [facility] reviewed today: A+/ all thyroid normal hemoglobin was 12.7 GC chlamydia negative Visit Date: 04/25/25 Last Updated by: Andria BrownOB Clinic)MD Father patient is a -0-1-0 status post SAB versus TAB at 13 weeks in the past. 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 Father the baby will not be involved in ID. She has good social support with her family and her sisters. I do not have any labs on her except for a normal NIPT and a normal 12-week NT. Office Procedures OB Clinic LOC & Office Proc's Nursing/Assessment Patient Status: Established Patient OB Clinic Nursing Assessment: Medication Reconciliation, Update PMH in EMR and Vital Signs OB Clinic Coordination of Care: Education Complex Pt/Fam, Consent,records obtained, informed consent, Lab and Imaging orders, Results/Orders obtained and Staff clarify orders Special Needs: Heart tones Miscellaneous Interventions: Pelvic Comp w/OB cult Established Patient Charge Established Patient Point Assignment: 130 Established Patient Point Charge: EP Level 4 (120-155) Assessment & Plan Diagnosis / Problem List (1) : Status: Acute Qualifiers: Weeks of gestation: 35 weeks Qualified Code(s): Z3A.35 - 35 weeks gestation of
== END 2025-08-12 16:25 | disposition home or self-care (01) ==
LOC: HODSOBC 15:06
PROVIDERS: Supervising Provider Obstetrics & Gynecology; Visit Provider Obstetrics & Gynecology
DX: Z34.83 Encounter for supervision of other normal pregnancy, third trimester (principal); Z3A.36 36 weeks gestation of pregnancy
CPT/HCPCS: 99214; G0463

== ENCOUNTER 2025-08-19 15:05 | Outpatient (AMB) | payer BC, SELFPAY ==
[2025-08-19 15:18] VITALS: BP 123/79; PULSE 82; RESP 16; TEMP 36.4; O2SAT 98; BMI 29.4
--- NOTE | 2025-08-19 15:18 | OBCLNT_ITS ---
Vital Signs 08/19/25 15:18 Height 1.73 m Height Method Stated Weight 88.054 kg Weight Measurement Method Standing Scale BMI 29.4 BP 123/79 Blood Pressure Source Automatic Cuff Blood Pressure Location Left Upper Arm Position Sitting Respiration 16 Pulse 82 Pulse Source Monitor Temp 97.6 F Temp Source Oral Pulse Oximetry (%) 98 Oxygen Delivery Method Room Air Allergies/Home Meds Allergies & Medications Allergies No Known Allergies Allergy (Verified 08/19/25 15:19) Medication Reconciliation No Known Home Medications 08/03/25 [History Confirmed 08/19/25] Intake Visit Data Collection New Patient or Established: Established Patient (seen at [facility] within 3 years) Reason for Visit:: CARE Seen by Clinical Staff ONLY (RN/MA): No Network Firewall Engineer Required: No Do You Feel Safe at Home: Yes Authorities Contacted: N/A PCP or OBGYN visit in last 3 months: Yes Hx Now: Yes Are you currently on any form of Control: No Pain Present Currently: No Pain Scale Used: Farah-Franklin/Numerical Pain scale:: 0 Smoking Status Smoking Status: Never smoker Questionnaires PHQ-9 PHQ-2 Over the last 2 weeks, how often have you been bothered by any of the following problems? 1. Little interest or pleasure in doing things: not at all 2. Feeling down, depressed, or hopeless: not at all Total score: 0 PHQ-9 3. Trouble falling or staying asleep, or sleeping too much: Not at all 4. Feeling tired or having little energy: Not at all 5. Poor appetite or overeating: Not at all 6. Feeling bad about yourself - or that you are a failure or have let yourself or your family down: Not at all 7. Trouble concentrating on things, such as reading the newspaper or watching television: Not at all 8. Moving or speaking so slowly that other people could have noticed? - Or the opposite - being so fidgety or restless that you have been moving around a lot more than usual: not at all 9. Thoughts that you would be better off or of hurting yourself in some way: Not at all Total score: 0 Source: Developed by Drs. Cornelio Boggs, Rody Selby, Obie Veronica and colleagues, with an educational phillip from [employer] 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 FOB not involved Tobacco History Smoking Status: Never smoker Second Hand Smoke Exposure: No Alcohol History Alcohol Intake: Never Domestic Abuse History Do You Feel Safe at Home: Yes Care OB Visit Log OB Flowsheet Initial Weight: Not Recorded Date -?-?-?-?-?-?-?-?-?-?-?-?- EGA Weight BP Alb Glu CTX Pres Fundal ht FHR Mov Dilation Station Effacement Hx Notes Visit Note 04/25/25 -?-?-?-?-?-?-?-?-?-?--?-?- 21w 2d 73.595 kg 110/72 20 145 Transfer of care. Patient came from [place]. I have a 12-week ultrasound from an [facility] for a normal nuchal t ranslucency and NIPT that is normal. I do not have any other lab work on her. She states it was drawn at [facility]. 05/24/25 -?-?-?-?-?-?-?-?-?-?-?-?- 25w 3d 77.791 kg 124/77 25 140 active Positive movement no contractions no loss some labs on the chart from [facility]. Do not have structural survey report from Chris at [facility] 06/22/25 -?-?-?-?-?-?-?-?-?-?-?-?- 29w 4d 82.27 kg 119/73 29 137 active Patient present with her mother today. Good movem ent no contractions no loss of fluids 07/06/25 -?-?-?-?-?-?-?-?-?-?-?-?- 31w 4d 83.007 kg 123/77 31 145 active Good movement. No c ontractions no bleeding Patient will have her mother and possibly assist her in labor with her. 07/20/25 -?-?-?-?-?-?-?-?-?-?-?-?- 33w 4d 84.822 kg 112/70 absent 34 145 ac tive Good movement no contractions no loss of fluids P philip's mother and sister will be in labor with her. 08/03/25 -?-?-?-?-?-?-?-?-?-?-?-?- 35w 4d 86.806 kg 112/74 occasional 35 165 active Good movement no contractions or loss of fluids P atient is a bit congested 08/12/25 -?-?-?-?-?-?-?-?-?-?-?-?- 36w 6d 87.146 kg 126/80 occasional 37 167 active 1 -2 75 Good movement no contractions or vaginal bleeding Good movement no contractions or vaginal bleeding GB BS cx done Discussed labor and kick counts. 08/19/25 -?-?-?-?-?-?-?-?-?-?-?-?- 37w 6d 88.054 kg 123/79 occasional 143 a ctive 2 -2 80 Good movement no contractions no loss of fluids D iscussed labor. Discussed kick counts. PAUL Calculator Estimated Delivery Date Method Current WG Current Estimate 09/03/25 Ultrasound #1 37w 6d Other Estimates 09/03/25 LMP (Certain) 37w 6d Expected Delivery Route/Plan Unexpected FOB not involved Good social support with her sister and her mother Patient wants to try to go natural labor without an epidural. Specific Issue/Plans -0-1-0 First visit at about 12 weeks in [place]. A +\antibody negative\thyroid levels normal\GC negative\chlamydia negative\[place] [facility] 04/26/2025 live IUP 20 weeks 5 days EDC 09/08/2025 1 hour glucose 131/rubella immune/RPR nonreactive/HIV negative/hepatitis B surface antigen negative/hepatitis C negative Notes Visit Date: 08/19/25 Last Updated by: Andria Corea (OB Clinic)MD Group B strep was repeated as for some reason this was not sent last time. Visit Date: 08/03/25 Last Updated by: Andria Corea (OB Clinic)MD The patient states her nose is stuffy and it is hard for her to sleep secondary to congestion. We did discuss taking Benadryl before bed and using Flonase. Patient did not want to not want to try anything before talking to me. If she is has seasonal allergies that she can take a Claritin-D daily. During the day if she does not have allergies she could try Sudafed. She denies fevers chills or cough. Visit Date: 07/20/25 Last Updated by: Andria Corea ([facility] Clinic)MD Patient told me her mother has metastatic breast cancer with recurrence. Her mother was checked for BRCA1 BRCA2 and is negative. Her labs from [facility] are reviewed with her. These are dated from 825 her glucose 1 hour is 131 she is rubella immune RPR nonreactive HIV negative hepatitis B surface antigen negative and hepatitis C negative. 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 She has 1-2+ pedal edema. Preeclamptic signs and symptoms were discussed in detail. Visit Date: 07/06/25 Last Updated by: Andria Corea (OB Clinic)MD Patient tried to get her labs done at [facility] and could not get in twice. She made an appointment for an week to get her 1 hour glucose done and all her labs done. She will be approximately 32 weeks by then. Visit Date: 06/22/25 Last Updated by: Andria Corea (OB Clinic)MD Patient states she wants to go natural in labor. Discussed natural labor/ Hep-Lock/ ambulating/ labor ball. Also discussed being flexible in labor. Discussed epidural and side effects also fentanyl for pain control in labor. Patient will get her glucose test. As her first doctor in [place] for some reason did not order all her labs except a blood type and thyroid levels and hemoglobin A1c and GC chlamydia, I will reorder all missing labs at [facility]. I will perform an ultrasound approximately 36 weeks to check size. I was able to get a hold of her ultrasound from [facility] imaging revealing on 04/26/2025 revealing a live IUP 20 weeks 5 days EDC 09/08/2025. Visit Date: 05/24/25 Last Updated by: Andria Corea (OB Clinic)MD Notes on the chart from [facility] reviewed today: A+/ all thyroid normal hemoglobin was 12.7 GC chlamydia negative Visit Date: 04/25/25 Last Updated by: Andria Corea (OB Clinic)MD Father patient is a -0-1-0 status post SAB versus TAB at 13 weeks in the past. 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 Father the baby will not be involved in PR. She has good social support with her family and her sisters. I do not have any labs on her except for a normal NIPT and a normal 12-week NT. Office Procedures OBC Clinic LOC & Office Proc's Nursing/Assessment Patient Status: Established Patient OB Clinic Nursing Assessment: Medication Reconciliation, Update PMH in EMR and Vital Signs OB Clinic Coordination of Care: Complex Care and Chronic Disease 1-5, Consent,records obtained, informed consent, Education Simp Pt/Fam, Lab and Imaging orders, Results/Orders obtained and Staff clarify orders Special Needs: Heart tones Established Patient Charge Established Patient Point Assignment: 135 Established Patient Point Charge: EP Level 4 (120-155) Assessment & Plan Diagnosis / Problem List (1) : Status: Acute Qualifiers: Weeks of gestation: 35 weeks Qualified Code(s): Z3A.35 - 35 weeks gestation of Plan: Group B strep repeated. Pelvic exam done. Cervix is 2 cm. Labor discussed. All questions answered. Kick counts discussed. Follow-up in 1 week. Additional Plan Follow Up: 1 Week
== END 2025-08-19 15:45 | disposition home or self-care (01) ==
LOC: HODSOBC 15:05
PROVIDERS: Supervising Provider Obstetrics & Gynecology; Visit Provider Obstetrics & Gynecology
DX: Z34.83 Encounter for supervision of other normal pregnancy, third trimester (principal); Z36.85 Encounter for antenatal screening for Streptococcus B; Z3A.37 37 weeks gestation of pregnancy
CPT/HCPCS: 99214; G0463

== ENCOUNTER 2025-08-24 09:33 | Outpatient (AMB) | payer BC, SELFPAY ==
[2025-08-24 09:48] VITALS: BP 125/79; PULSE 73; RESP 73; TEMP 36.6; O2SAT 98; BMI 29.9
--- NOTE | 2025-08-24 09:48 | OBCLNT_ITS ---
Vital Signs 08/24/25 09:48 Height 1.73 m Height Method Stated Weight 89.528 kg Weight Measurement Method Standing Scale BMI 29.9 BP 125/79 Blood Pressure Source Automatic Cuff Blood Pressure Location Left Upper Arm Position Sitting Respiration 73 H Pulse 73 Pulse Source Monitor Temp 97.8 F Temp Source Oral Pulse Oximetry (%) 98 Oxygen Delivery Method Room Air Allergies/Home Meds Allergies & Medications Allergies No Known Allergies Allergy (Verified 08/24/25 09:49) Medication Reconciliation No Known Home Medications 08/03/25 [History Confirmed 08/24/25] Intake Visit Data Collection New Patient or Established: Established Patient (seen at [facility] within 3 years) Reason for Visit:: CARE Seen by Clinical Staff ONLY (RN/MA): No Artificial Breast Fabricator Required: No Do You Feel Safe at Home: Yes Authorities Contacted: N/A PCP or OBGYN visit in last 3 months: Yes Hx Now: Yes Are you currently on any form of Control: No Pain Present Currently: No Pain Scale Used: Farah-Franklin/Numerical Pain scale:: 0 Smoking Status Smoking Status: Never smoker Questionnaires Covid-19 Vaccine Questionnaire Has patient been vacinated for Covid-19 Have you been vacinated for Covid-19: Yes PHQ-9 PHQ-2 Over the last 2 weeks, how often have you been bothered by any of the following problems? 1. Little interest or pleasure in doing things: not at all 2. Feeling down, depressed, or hopeless: not at all Total score: 0 PHQ-9 3. Trouble falling or staying asleep, or sleeping too much: Not at all 4. Feeling tired or having little energy: Not at all 5. Poor appetite or overeating: Not at all 6. Feeling bad about yourself - or that you are a failure or have let yourself or your family down: Not at all 7. Trouble concentrating on things, such as reading the newspaper or watching television: Not at all 8. Moving or speaking so slowly that other people could have noticed? - Or the opposite - being so fidgety or restless that you have been moving around a lot more than usual: not at all 9. Thoughts that you would be better off or of hurting yourself in some way: Not at all Total score: 0 Source: Developed by Rody Cat B.W. Bal, Obie Veronica and colleagues, with an educational phillip from [employer] 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 FOB not involved Tobacco History Smoking Status: Never smoker Second Hand Smoke Exposure: No Alcohol History Alcohol Intake: Never Domestic Abuse History Do You Feel Safe at Home: Yes Care OB Visit Log OB Flowsheet Initial Weight: Not Recorded Date -?-?-?-?-?-?-?-?-?-?-?-?- EGA Weight BP Alb Glu CTX Pres Fundal ht FHR Mov Dilation Station Effacement Hx Notes Visit Note 04/25/25 -?-?-?-?-?-?-?-?-?-?-?-?- 21w 2d 73.595 kg 110/72 20 145 Transfer of care. Patient came from [place]. I have a 12-week ultrasound from an [facility] for a normal nuchal translucenc y and NIPT that is normal. I do not have any other lab work on her. She states it was drawn at [facility]. 05/24/25 -?-?-?-?-?-?-?-?-?-?-?-?- 25w 3d 77.791 kg 124/77 25 140 active Positive movement no contractions no loss some labs on the chart from [facility]. Do not have structural survey report from [place] at [facility]. 06/22/25 -?-?-?-?-?-?-?-?-?-?-?-?- 29w 4d 82.27 kg 119/73 29 137 active Patient present with her mother today. Good movem ent no contractions no loss of fluids 07/06/25 -?-?-?-?-?-?-?-?-?-?-?-?- 31w 4d 83.007 kg 123/77 31 145 active Good movement. No contractions no bleeding Patient will have her mother and possibly assist her in labor with her. 07/20/25 -?-?-?-?-?-?-?-?-?-?-?-?- 33w 4d 84.822 kg 112/70 absent 34 145 ac tive Good movement no contractions no loss of fluids P philip's mother and sister will be in labor with her. 08/03/25 -?-?-?-?-?-?-?-?-?-?-?-?- 35w 4d 86.806 kg 112/74 occasional 35 165 active Good movement no contractions or loss of fluids P philip is a bit congested 08/12/25 -?-?-?-?-?-?--?-?-?-?-?-?- 36w 6d 87.146 kg 126/80 occasional 37 167 active 1 -2 75 Good movement no contractions or vaginal bleeding Good movement no contractions or vaginal bleeding GB BS cx done Discussed labor and kick counts. 08/19/25 -?-?-?-?-?-?-?-?-?-?-?-?- 37w 6d 88.054 kg 123/79 occasional 143 a ctive 2 -2 80 Good movement no contractions no loss of fluids D iscussed labor. Discussed kick counts. 08/24/25 -?-?-?-?-?-?-?-?-?-?-?-?- 38w 4d 89.528 kg 125/79 occasional 36 137 active 2.5 -1 80 Good movement no contractions no loss of fluids Discussed labor and kick counts PAUL Calculator Estimated Delivery Date Method Current WG Current Estimate 09/03/25 Ultrasound #1 38w 4d Other Estimates 09/03/25 LMP (Certain) 38w 4d Expected Delivery Route/Plan Unexpected FOB not involved Good social support with her sister and her mother Patient wants to try to go natural labor without an epidural. Specific Issue/Plans -0-1-0 First visit at about 12 weeks in [place]. A +\antibody negative\thyroid levels normal\GC negative\chlamydia negat y[facility]\[place] [facility] 04/26/2025 live IUP 20 weeks 5 days EDC 09/08/2025 1 hour glucose 131/rubella immune/RPR nonreactive/HIV negative/hepatitis B surface antigen negative/hepatitis C negative Notes Visit Date: 08/24/25 Last Updated by: Andria Corea ( Clinic), Group B strep negative follow-up 1 week Visit Date: 08/19/25 Last Updated by: Andria Corea (OB Clinic)MD Group B strep was repeated as for some reason this was not sent last time. Visit Date: 08/03/25 Last Updated by: Andria Corea ([facility] Clinic)MD The patient states her nose is stuffy and it is hard for her to sleep secondary to congestion. We did discuss taking Benadryl before bed and using Flonase. Patient did not want to not want to try anything before talking to me. If she is has seasonal allergies that she can take a Claritin-D daily. During the day if she does not have allergies she could try Sudafed. She denies fevers chills or cough. Visit Date: 07/20/25 Last Updated by: Andria Corea ([facility] Clinic)MD Patient told me her mother has metastatic breast cancer with recurrence. Her mother was checked for BRCA1 BRCA2 and is negative. Her labs from [facility] are reviewed with her. These are dated from 825 her glucose 1 hour is 131 she is rubella immune RPR nonreactive HIV negative hepatitis B surface antigen negative and hepatitis C negative. 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 She has 1-2+ pedal edema. Preeclamptic signs and symptoms were discussed in detail. Visit Date: 07/06/25 Last Updated by: Andria Corea ( Clinic)MD Patient tried to get her labs done at [facility] and could not get in twice. She made an appointment for an week to get her 1 hour glucose done and all her labs done. She will be approximately 32 weeks by then. Visit Date: 06/22/25 Last Updated by: Andria Corea ([facility])MD Patient states she wants to go natural in labor. Discussed natural labor/ Hep-Lock/ ambulating/ labor ball. Also discussed being flexible in labor. Discussed epidural and side effects also fentanyl for pain control in labor. Patient will get her glucose test. As her first doctor in [place] for some reason did not order all her labs except a blood type and thyroid levels and hemoglobin A1c and GC chlamydia, I will reorder all missing labs at [facility]. I will perform an ultrasound approximately 36 weeks to check size. I was able to get a hold of her ultrasound from [facility] revealing on 04/26/2025 revealing a live IUP 20 weeks 5 days EDC 09/08/2025. Visit Date: 05/24/25 Last Updated by: Andria Corea ([facility] Clinic)MD Notes on the chart from [facility] reviewed today: A+/ all thyroid normal hemoglobin was 12.7 GC chlamydia negative Visit Date: 04/25/25 Last Updated by: Andria Corea (OB Clinic)MD Father patient is a -0-1-0 status post SAB versus TAB at 13 weeks in the past. 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 Father the baby will not be involved in [place]. She has good social support with her family and her sisters. I do not have any labs on her except for a normal NIPT and a normal 12-week NT. Office Procedures OBC Clinic LOC & Office Proc's Nursing/Assessment Patient Status: Established Patient OB Clinic Nursing Assessment: Medication Reconciliation, Update PMH in EMR and Vital Signs OB Clinic Coordination of Care: Complex Care and Chronic Disease 1-5, Consent,records obtained, informed consent, Education Simp Pt/Fam, Lab and Imaging orders, Results/Orders obtained and Staff clarify orders Special Needs: Heart tones Miscellaneous Interventions: Pelvic no cultures Established Patient Charge Established Patient Point Assignment: 145 Established Patient Point Charge: EP Level 4 (120-155)
== END 2025-08-24 10:31 | disposition home or self-care (01) ==
LOC: HODSOBC 09:33
PROVIDERS: Supervising Provider Obstetrics & Gynecology; Visit Provider Obstetrics & Gynecology
DX: Z34.83 Encounter for supervision of other normal pregnancy, third trimester (principal); Z3A.38 38 weeks gestation of pregnancy
CPT/HCPCS: 99214; G0463

== ENCOUNTER 2025-08-25 02:47 | Inpatient (IN) | payer BC, SELFPAY ==
[2025-08-25] VITALS (154 sets, daily range): BP systolic 94–133; BP diastolic 57–86; PULSE 78–123; RESP 16–100; TEMP 36.7–38; O2SAT 81–100; BMI 29.6
[2025-08-25 03:46] LABS: ROM Kit Lot # 58104371
[2025-08-25 03:47] LABS: ROM Kit Exp Date# 01/18/28; ROM Swab Mixed By: ANGUM; Swb Mxed in Solvent 1 min? Yes
[2025-08-25 03:48] LABS: Rupture of Fetal Membranes Positive (Negative)
[2025-08-25] MEDS: RINGERS LACTATED 1000 ML 1,000 ML 125 ML IV ×4 (04:37→09:15)
[2025-08-25 04:52] LABS: Amphetamine/Metham Scrn,Ur OB Negative (Negative); Benzoylecgonine Screen, Ur OB Negative (Negative); Opiate Screen,Urine OB Negative (Negative); THC Screen,Urine OB Negative (Negative)
[2025-08-25 05:05] LABS: Basophils # (Auto) 0.0 Thou/mm3 (0.0-0.2); Basophils % (Auto) 0 % (0-2.5); Eosinophils # (Auto) 0.0 Thou/mm3 (0.0-0.5); Eosinophils % (Auto) 0 % (0-10); Hematocrit 31.8 % (36.0-46.0); Hemoglobin 11.0 g/dL (12.0-16.0); Immature Granulocytes Auto 0.09 Thou/mm3 (0.00-0.00); Lymphocytes # (Auto) 1.4 Thou/mm3 (1.0-4.8); Lymphocytes % (Auto) 8 % (10-50); Mean Corpuscular HGB Conc 34.6 g/dl (31.0-37.0); Mean Corpuscular Hemoglobin 28.9 pg (25.0-35.0); Mean Corpuscular Volume 84 fL (80-100); Monocytes # (Auto) 0.9 Thou/mm3 (0.0-0.8); Monocytes % (Auto) 5 % (0-12); Neutrophils # (Auto) 14.9 Thou/mm3 (1.8-7.7); Neutrophils % (Auto) 86 % (37-80); Nucleated Red Blood Cell # 0.00 Thou/mm3 (0.00-0.00); Nucleated Red Blood Cell % 0 /100 WBC (0); Platelet Count 215 Thou/mm3 (140-440); RDW Standard Deviation 38.3 fL (36.4-46.3); Red Blood Count 3.81 Miln/mm3 (4.00-5.20); White Blood Count 17.3 Thou/mm3 (3.6-11.0)
[2025-08-25 05:42] LABS: Syphilis Nonreactive (Nonreactive)
--- NOTE | 2025-08-25 06:53 | PD.LDHP ---
Documentation for date of: 08/25/25 OB Labor/Induct. HPI History of Present Illness Chief complaint: Ruptured membranes : 2 Para: 0 Term pregnancies: 0 pregnancies: 0 Living children: 0 History of Abortions: Spontaneous and Elective: 1 History of Vaginal deliveries: 0 History of sections: No History of : No Date of last menstrual period: 11/27/24 PAUL: 09/08/25 Gestational Age (weeks): 38 Gestational Age (days): 5 Gestational age based on last menstrual period: 38 History of present illness: Patient is a 25-year-old -0-1-0 at 38-5/7 weeks with an EDC of 09/03/2025 and all care uncomplicated at [facility] women's clinic presented with ruptured membranes to triage. Patient is 2 to 3 cm dilated 80% with -2 station she desires to proceed naturally if possible and does not desire epidural. Group B strep is negative. She was found to be zackery uncomfortably every 2 to 3 minutes on admission. History of Present Dating criteria: LMP confirmed by 1st trimester US Adequate Care: Yes Ultrasounds: normal mid trimester US Obstetrical complications: none Medical complications: none Labs Maternal Blood Type: A Pos Labs: Positive: Rubella Titre, Negative: RPR, Hepatitis B, HIV, Chlamydia, Gonorrhea and Group Beta Strep and Unknown: Herpes Type 1, Herpes Type 2 and Covid-19 Review of Systems Review of Systems Narrative Review of Systems: On admission, patient reported good movement with ruptured clear fluids and getting uncomfortable with her contractions Past Medical History Surgical History SURGICAL: Negative Section Meds Home Medications and Allergies Home Medications ?Medication ?Instructions ?Recorded ?Confirmed ?Type No Known Home Medications 08/03/25 08/24/25 History Allergies Allergy/AdvReac Type Severity Reaction Status Date / Time No Known Allergies Allergy Verified 08/24/25 09:49 OB Exam Physical Exam Vital signs: Temp Pulse Resp BP Pulse Ox 98.8 F 95 16 105/58 L 100 08/25/25 06:27 08/25/25 06:50 08/25/25 06:27 08/25/25 06:50 08/25/25 06:53 Detailed Labor and Delivery Exam Dilation (cm): 2-3 Effacement (%): 80 Cervix position: posterior station: -1 Consistency: soft Presentation: Vertex Membranes: ruptured Amniotic fluid: clear monitor accelerations: 15x15 monitor decelerations: None long-term variability: Moderate (11-25) Tachysystole: No Contraction intensity: Moderate OB Results Labs 08/25/25 04:20 Labs: Short CBC 08/25/25 Range/Units 04:20 WBC 17.3 H (3.6-11.0) Thou/mm3 Hgb 11.0 L (12.0-16.0) g/dL Hct 31.8 L (36.0-46.0) % Plt Count 215 (140-440) Thou/mm3 OB Assessment & Plan Assessment and Plan (1) Supervision of high risk in third trimester: Status: Acute Additional Plan Induction method: none Plan: anticipate NVD
[2025-08-25] MEDS: OXYTOCIN INJ 10 UNIT/ML VIAL IM (12:49)
[2025-08-25] MEDS: OXYTOCIN in NS 20 units 20 UNIT/1,000 ML BAG 125 UNIT IV (12:52)
[2025-08-25] MEDS: MINERAL OIL 30 ML UDC TOP (13:00)
[2025-08-25] MEDS: BENZO/LANO/ALOE (Dermoplast) 60 GM CAN 1 SPRAY TOP (13:01)
[2025-08-25] MEDS: LIDOCAINE HCL 1% 20 ML VIAL INFL (13:02)
--- NOTE | 2025-08-25 13:53 | PD.LDDELS ---
Data ([place]) Data Hx Section: No : 2 Term: 0 : 0 Livin Abortions: Spontaneous & Theraputic: 1 Delivery Data ([place]) Labor Data Initiation of labor: Spontaneous Induction/Augmentation Agent: None ROM date: 08/25/25 ROM time: 00:50 Amniotic membrane rupture type: Spontaneous Amniotic fluid description: Clear Delivery Data EDC: 08/25/25 EDC calculated by:: LMP/early US confirmation Date of arrival to unit: 08/25/25 Time of arrival to unit: 02:47 Onset of labor date: 08/25/25 Onset of labor time: 07:08 Complete dilation date: 08/25/25 Complete dilation time: 11:42 delivery date: 08/25/25 delivery time: 12:42 Gestational age (weeks): 38 Gestational age (days): 0 Placenta delivery date: 08/25/25 Placenta delivery time: 12:51 Stage 1 total time: Labor - Stage 1 Duration 4 hours and 34 minutes Delivered by: Teetee Borja Delivery nurse: Dasia Bear RN [facility] nurse: Juanis Fofana RN Supervisor Contingents at delivery: No Support person(s) at delivery: Mother of pt, sister of pt Other staff at delivery: Duc Berry RN Delivery Method Delivery method: Normal Vaginal Delivery Presentation: Vertex position: OA Anesthesia Type Anesthesia Type: Local and Epidural Delivery Room Medications Delivery room medications: Lidocaine (local), Pitocin 10 u IM, Pitocin 20 u IV and Cytotec 800 MN Placenta Placenta delivery description: Spontaneous (inspected. intact) Cord blood sent to lab: No cord blood collection: Cord Blood Type Episiotomy Episiotomy description: Midline Lacerations #1: Vaginal: 1st degree (bilateral) Perineal repair Sutures used for repair: 3.0 Vicryl (2.0) EBL Estimated blood loss (ml): 400 Umbilical Cord cord description: 3 Vessels Data ([place]) Data order: 1 [place]'s gender: Male weight (gms): 3440 g Weight (pounds): 7 lbs and 9.3 ozs 1 minute: 8 5 minutes: 9
[2025-08-25] MEDS: ceFAZolin/D5W 2 GM IV 2 GM/100 ML BAG IV ×2 (16:02→21:59)
[2025-08-25] MEDS: DOCUSATE SOD 100 MG CAPSULE PO (21:59)
[2025-08-25 23:16] LABS: Basophils # (Auto) 0.1 Thou/mm3 (0.0-0.2); Basophils % (Auto) 0 % (0-2.5); Eosinophils # (Auto) 0.0 Thou/mm3 (0.0-0.5); Eosinophils % (Auto) 0 % (0-10); Hematocrit 27.2 % (36.0-46.0); Hemoglobin 9.3 g/dL (12.0-16.0); Immature Granulocytes Auto 0.29 Thou/mm3 (0.00-0.00); Lymphocytes # (Auto) 1.9 Thou/mm3 (1.0-4.8); Lymphocytes % (Auto) 7 % (10-50); Mean Corpuscular HGB Conc 34.2 g/dl (31.0-37.0); Mean Corpuscular Hemoglobin 29.7 pg (25.0-35.0); Mean Corpuscular Volume 87 fL (80-100); Monocytes # (Auto) 2.3 Thou/mm3 (0.0-0.8); Monocytes % (Auto) 8 % (0-12); Neutrophils # (Auto) 24.3 Thou/mm3 (1.8-7.7); Neutrophils % (Auto) 84 % (37-80); Nucleated Red Blood Cell # 0.00 Thou/mm3 (0.00-0.00); Nucleated Red Blood Cell % 0 /100 WBC (0); Platelet Count 165 Thou/mm3 (140-440); RDW Standard Deviation 40.4 fL (36.4-46.3); Red Blood Count 3.13 Miln/mm3 (4.00-5.20); White Blood Count 28.8 Thou/mm3 (3.6-11.0)
[2025-08-26 00:41] VITALS: BP 115/75; PULSE 86; RESP 16; TEMP 37; O2SAT 97
--- NOTE | 2025-08-26 02:41 | PD.LDPPPRG ---
Subjective Subjective Interval history: No complaints of pain, dizziness. Breast-feeding and bonding Exam Vital Signs Temp Pulse Resp BP Pulse Ox 98.6 F 86 16 115/75 97 08/26/25 00:41 08/26/25 00:41 08/26/25 00:41 08/26/25 00:41 08/26/25 00:41 Narrative Exam WBCs increased from 17-28. Afebrile. Temp is 98.6. Pulse and respirations normal range. Fundus firm below the umbilicus. Small lochia. Episiotomy well-approximated. Minimal swelling. Patient has a moderate size hemorrhoid. 2+ DTRs. Negative Homans' sign. Objective Labs 08/25/25 22:30 Labs: Laboratory Results - last 24 hr 08/25/25 08/25/25 08/25/25 03:35 04:20 04:30 WBC 17.3 H RBC 3.81 L Hgb 11.0 L Hct 31.8 L MCV 84 MCH 28.9 MCHC 34.6 RDW Std Deviation 38.3 Plt Count 215 Neut % (Auto) 86 H Lymph % (Auto) 8 L Sequoyah % (Auto) 5 Eos % (Auto) 0 Baso % (Auto) 0 Neut # (Auto) 14.9 H Lymph # (Auto) 1.4 Sequoyah # (Auto) 0.9 H Eos # (Auto) 0.0 Baso # (Auto) 0.0 Immature Gran # (Auto) 0.09 H Absolute Nucleated RBC 0.00 Immature Gran % 1 H Nucleated RBC % 0 Membrane Rupture Positive A Urine Opiates Screen Negative U Amphetamin/Meth Scrn Negative U Cocaine Metab Screen Negative U Marijuana (THC) Screen Negative Syphilis Serology Nonreactive Blood Type A Positive Antibody Screen NEGATIVE Blood Bank Wristband ID Yes 08/25/25 22:30 WBC 28.8 H D RBC 3.13 L Hgb 9.3 L Hct 27.2 L MCV 87 MCH 29.7 MCHC 34.2 RDW Std Deviation 40.4 Plt Count 165 D Neut % (Auto) 84 H Lymph % (Auto) 7 L Sequoyah % (Auto) 8 Eos % (Auto) 0 Baso % (Auto) 0 Neut # (Auto) 24.3 H Lymph # (Auto) 1.9 Sequoyah # (Auto) 2.3 H Eos # (Auto) 0.0 Baso # (Auto) 0.1 Immature Gran # (Auto) 0.29 H Absolute Nucleated RBC 0.00 Immature Gran % 1 H Nucleated RBC % 0 Membrane Rupture Urine Opiates Screen U Amphetamin/Meth Scrn U Cocaine Metab Screen U Marijuana (THC) Screen Syphilis Serology Blood Type Antibody Screen Blood Bank Wristband ID Assessment & Plan Problem List (1) Supervision of high risk in third trimester: Status: Acute Assessment Comment Assessment comment: 24 hr pp Plan Comment Plan Comment: Repeat CBC at 5 in the morning. Discharge home today if WBCs are trending down. Discussed signs and symptoms of infection with patient. I advised her to monitor temperature. Discussed ER precautions and danger signs symptoms. Increase fluids. Rest. Ibuprofen or Tylenol if patient wants for pain. Continue prenatals. I discussed comfort measures and sitz bath's for midline episiotomy and hemorrhoids. Return in 3 weeks for visit Time Spent With Patient Time: Total time spent is greater than 50% in coordination of care (as documented) at patient's floor/unit and/or counseling patient:
--- NOTE | 2025-08-26 02:45 | ESDS_ITS ---
DS: Providers Provider Date of admission: 08/25/25 04:04 Primary care physician: Physician No Primary/Family Admitting Provider: Andria Corea MD (OB Clinic) Attending Provider on Admission: Teetee Borja CNM Consults: 08/25/25 15:06 Referral Routine Comment: Attending Provider on DC: Teetee Borja CNM Discharging Provider: Teetee Borja CNM DS: Diagnosis Problem List Completed Was Problem List Reviewed/Reconciled?: Yes Summary/Hosp Course Brief History: Patient is a 25-year-old -0-1-0 at 38-5/7 weeks with an EDC of 09/03/2025 and all care uncomplicated at [facility] women's clinic presented with ruptured membranes to triage. Patient is 2 to 3 cm dilated 80% with -2 station she desires to proceed naturally if possible and does not desire epidural. Group B strep is negative. She was found to be zackery uncomfortably every 2 to 3 minutes on admission. Peripartum Data Delivery Method: Normal Vaginal Delivery Episiotomy Description: Midline Laceration Description: yes (vaginal) and no complications: none Time Spent with Patient Time attestation: Total time spent providing and/or coordinating discharge services: Exam Vital Signs Temp Pulse Resp BP Pulse Ox 98.6 F 86 16 115/75 97 08/26/25 00:41 08/26/25 00:41 08/26/25 00:41 08/26/25 00:41 08/26/25 00:41 Discharge Plan Plan Patient Disposition: HOME (Self Care) Patient condition on transfer: Stable Prescriptions/Referrals Prescriptions/Med Rec: New ferrous sulfate 325 mg (65 mg iron) tablet 325 mg PO BID Qty: 60 1RF hydrocortisone [Proctosol HC] 2.5 % cream with perineal applicator 1 applic IA QDAY PRN (Reason: hemorrhoids) Qty: 30 1RF Referrals: No Primary/Family,Physician [Primary Care Provider] Patient/Caregiver Discharge Instructions Meds to Beds: No Discharge Activity: resume usual activities Print Language: Cuban Activity Restrictions/Additional Instructions: Discharge home with baby. If WBCs are trending down. Continue vitami ns. Continue iron. Tylenol or ibuprofen for pain. Discussed comfort measures for midline episiotomy repair. Sitz bath's. Discussed comfort measures for hemorrhoid. Provide patient with Proctosol to put on her hemorrhoid. And iron to take twice a day. Return in 3 weeks for visit Stand Alone Forms: Angelica Award Info., Patient Portal Info Letter Discharge Order Discharge Orders: Discharge (Routine); Ordered 08/26/25 Ordered By: Teetee Borja Planned Discharge Date 08/26/25
[2025-08-26 03:34] VITALS: BP 118/79; PULSE 94; RESP 16; TEMP 36.8; O2SAT 96
[2025-08-26] MEDS: ceFAZolin/D5W 2 GM IV 2 GM/100 ML BAG IV (05:44)
[2025-08-26 05:46] LABS: Basophils # (Auto) 0.0 Thou/mm3 (0.0-0.2); Basophils % (Auto) 0 % (0-2.5); Eosinophils # (Auto) 0.0 Thou/mm3 (0.0-0.5); Eosinophils % (Auto) 0 % (0-10); Hematocrit 26.0 % (36.0-46.0); Hemoglobin 8.9 g/dL (12.0-16.0); Immature Granulocytes Auto 0.15 Thou/mm3 (0.00-0.00); Lymphocytes # (Auto) 1.6 Thou/mm3 (1.0-4.8); Lymphocytes % (Auto) 7 % (10-50); Mean Corpuscular HGB Conc 34.2 g/dl (31.0-37.0); Mean Corpuscular Hemoglobin 29.1 pg (25.0-35.0); Mean Corpuscular Volume 85 fL (80-100); Monocytes # (Auto) 1.3 Thou/mm3 (0.0-0.8); Monocytes % (Auto) 6 % (0-12); Neutrophils # (Auto) 19.2 Thou/mm3 (1.8-7.7); Neutrophils % (Auto) 86 % (37-80); Nucleated Red Blood Cell # 0.00 Thou/mm3 (0.00-0.00); Nucleated Red Blood Cell % 0 /100 WBC (0); Platelet Count 165 Thou/mm3 (140-440); RDW Standard Deviation 39.7 fL (36.4-46.3); Red Blood Count 3.06 Miln/mm3 (4.00-5.20); White Blood Count 22.3 Thou/mm3 (3.6-11.0)
[2025-08-26 08:30] VITALS: BP 116/79; PULSE 81; RESP 18; TEMP 36.6; O2SAT 98
[2025-08-26] MEDS: DOCUSATE SOD 100 MG CAPSULE PO (08:52)
[2025-08-26] MEDS: FERRIC SOD GLUC INJ 125 MG in SODIUM CHLORIDE 0.9% 100 ML 110 MG IV (08:58)
[2025-08-26 11:30] VITALS: BP 116/77; PULSE 88; RESP 17; TEMP 36.6; O2SAT 97
== END 2025-08-26 15:17 | disposition home or self-care (01) | DRG 807 ==
LOC: S4SX 13:53 → S4NX 15:35
PROVIDERS: Admitting Provider Obstetrics & Gynecology; Visit Provider Advanced Practice Midwife
DX: O42.02 Full-term premature rupture of membranes, onset of labor within 24 hours of rupture (principal); Z37.0 Single live birth; Z3A.38 38 weeks gestation of pregnancy; O70.0 First degree perineal laceration during delivery
CPT/HCPCS: 36415; 59025; 80307; 84112; 85025; 86780; 86850; 86900; 86901; 94762; J0689; J2590; J2795; J2916; J3010; J3490; J7050; J7120; S0191; A9270

== ENCOUNTER 2025-10-18 09:41 | Outpatient (AMB) | payer BC, SELFPAY ==
[2025-10-18 09:59] VITALS: BP 124/80; PULSE 94; RESP 18; TEMP 36.2; O2SAT 98
--- NOTE | 2025-10-18 09:59 | AMB.OBPP ---
Vital Signs 10/18/25 09:59 Weight 76.714 kg Weight Measurement Method Standing Scale BP 124/80 Blood Pressure Source Automatic Cuff Blood Pressure Location Left Upper Arm Position Sitting Respiration 18 Pulse 94 Pulse Source Monitor Temp 97.2 F Temp Source Oral Pulse Oximetry (%) 98 Oxygen Delivery Method Room Air Allergies/Home Meds Allergies & Medications Allergies No Known Allergies Allergy (Verified 10/18/25 10:02) Medication Reconciliation ferrous sulfate 325 mg (65 mg iron) tablet 325 mg PO BID #60 tabs 08/26/25 [Rx Confirmed 10/18/25] hydrocortisone 2.5 % topical cream with perineal applicator (Proctosol HC) 1 applic [place] QDAY PRN hemorrhoids #30 grams 08/26/25 [Rx Confirmed 10/18/25] Intake Visit Data Collection New Patient or Established: Established Patient (seen at [facility] within 3 years) Reason for Visit:: PP Seen by Clinical Staff ONLY (RN/MA): No Rewind Operator Required: No Do You Feel Safe at Home: Yes Authorities Contacted: N/A PCP or OBGYN visit in last 3 months: Yes Date of Last PCP or OBGYN visit: 08/26/25 Hx Now: No Are you currently on any form of Control: No Pain Present Currently: No Pain Scale Used: Farah-[place]/Numerical Pain scale:: 0 Smoking Status Smoking Status: Never smoker Immunizations Flu Vaccine in the Last 12 Months: No Flu Vaccine Exclusion Criteria: No Exclusion Criteria 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 FOB not involved Tobacco History Smoking Status: Never smoker Second Hand Smoke Exposure: No Alcohol History Alcohol Intake: Never Domestic Abuse History Do You Feel Safe at Home: Yes EPDS - PP Depression Screening [place] Pos[place] Depression Screen I have been able to laugh and see the funny side of things: (0) As much as I always could I have looked forward with enjoyment to things: (0) As much as I ever did I have blamed myself unnecessarily when things went wrong: (0) No, never I have felt scared or panicky for no very good reason: (0) No, not at all Things have been getting on top of me: (0) No, I have been coping as well as ever I have been so unhappy that I have had difficulty sleeping: (0) No, not at all I have felt sad or miserable: (0) No, not at all I have been so unhappy that I have been crying: (0) No, never The thought of harming myself has occurred to me: (0) Never Total Score: EPDS Score: Referral is indicated for score of 9 or more, suicidal, or if provider believes patient is depressed regardless of score.: 0 EPDS completed yes Care OB Visit Log OB Flowsheet Initial Weight: Not Recorded Date <del>?</del> EGA Weight BP Alb Glu CTX Pres Fundal ht FHR Mov Dilation Station Effacement Hx Notes Visit Note 04/25/25 <del>?</del> 21w 2d 73.595 kg 110/72 20 145 Transfer of care. Patient came from [place]. I have a 12-week ultrasound from an [facility] for a normal nuchal translucency and NIPT that is normal. I do not have any other lab work on her. She states it was drawn at [facility]. 05/24/25 <del>?</del> 25w 3d 77.791 kg 124/77 25 140 active Positive movement no contractions no loss some labs on the chart from [facility]. Do not have structural survey report from Chris at [facility]. 06/22/25 <del>?</del> 29w 4d 82.27 kg 119/73 29 137 active Patient present with her mother today. Good movement no contractions no loss of fluids 07/06/25 <del>?</del> 31w 4d 83.007 kg 123/77 31 145 active Good movement. No contractions no bleeding Patient will have her mother and possibly assist her in labor with her. 07/20/25 <del>?</del> 33w 4d 84.822 kg 112/70 absent 34 145 active Good movement no contractions no loss of fluids Patient's mother and sister will be in labor with her. 08/03/25 <del>?</del> 35w 4d 86.806 kg 112/74 occasional 35 165 active Good movement no contractions or loss of fluids Patient is a bit congested 08/12/25 <del>?</del> 36w 6d 87.146 kg 126/80 occasional 37 167 active 1 -2 75 Good movement no contractions or vaginal bleeding Good movement no contractions or vaginal bleeding GBBS cx done Discussed labor and kick counts. 08/19/25 <del>?</del> 37w 6d 88.054 kg 123/79 occasional 143 active 2 -2 80 Good movement no contractions no loss of fluids Discussed labor. Discussed kick counts. 08/24/25 <del>?</del> 38w 4d 89.528 kg 125/79 occasional 36 137 active 2.5 -1 80 Good movement no contractions no loss of fluids Discussed labor and kick counts PAUL Calculator Estimated Delivery Date Method Current WG Current Estimate 09/03/25 Ultrasound #1 46w 3d Other Estimates 09/03/25 LMP (Certain) 46w 3d Expected Delivery Route/Plan Unexpected FOB not involved Good social support with her sister and her mother Patient wants to try to go natural labor without an epidural. Specific Issue/Plans -0-1-0 First visit at about 12 weeks in [place]. A +\antibody negative\thyroid levels normal\GC negative\chlamydia negative\[facility] 04/26/2025 live IUP 20 weeks 5 days EDC 09/08/2025 1 hour glucose 131/rubella immune/RPR nonreactive/HIV negative/hepatitis B surface antigen negative/hepatitis C negative Notes Visit Date: 08/24/25 Last Updated by: Andria Corea ([facility]), Group B strep negative follow-up 1 week Visit Date: 08/19/25 Last Updated by: Andria Corea ([facility])MD Group B strep was repeated as for some reason this was not sent last time. Visit Date: 08/03/25 Last Updated by: Andria Corea ([facility])MD The patient states her nose is stuffy and it is hard for her to sleep secondary to congestion. We did discuss taking Benadryl before bed and using Flonase. Patient did not want to not want to try anything before talking to me. If she is has seasonal allergies that she can take a Claritin-D daily. During the day if she does not have allergies she could try Sudafed. She denies fevers chills or cough. Visit Date: 07/20/25 Last Updated by: Andria Corea ([facility])MD Patient told me her mother has metastatic breast cancer with recurrence. Her mother was checked for BRCA1 BRCA2 and is negative. Her labs from [facility] are reviewed with her. These are dated from 825 her glucose 1 hour is 131 she is rubella immune RPR nonreactive HIV negative hepatitis B surface antigen negative and hepatitis C negative. 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 She has 1-2+ pedal edema. Preeclamptic signs and symptoms were discussed in detail. Visit Date: 07/06/25 Last Updated by: Andria Corea ( Clinic)MD Patient tried to get her labs done at [facility] and could not get in twice. She made an appointment for an week to get her 1 hour glucose done and all her labs done. She will be approximately 32 weeks by then. Visit Date: 06/22/25 Last Updated by: Andria Corea ([facility])MD Patient states she wants to go natural in labor. Discussed natural labor/ Hep-Lock/ ambulating/ labor ball. Also discussed being flexible in labor. Discussed epidural and side effects also fentanyl for pain control in labor. Patient will get her glucose test. As her first doctor in [place] for some reason did not order all her labs except a blood type and thyroid levels and hemoglobin A1c and GC chlamydia, I will reorder all missing labs at [facility]. I will perform an ultrasound approximately 36 weeks to check size. I was able to get a hold of her ultrasound from [facility] on 04/26/2025 revealing a live IUP 20 weeks 5 days EDC 09/08/2025. Visit Date: 05/24/25 Last Updated by: Andria Corea ([facility])MD Notes on the chart from [facility] reviewed today: A+/ all thyroid normal hemoglobin was 12.7 GC chlamydia negative Visit Date: 04/25/25 Last Updated by: Andria Corea ([facility])MD Father patient is a -0-1-0 status post SAB versus TAB at 13 weeks in the past. 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 Father the baby will not be involved in [place]. She has good social support with her family and her sisters. I do not have any labs on her except for a normal NIPT and a normal 12-week NT. HPI Interval History: 25-year-old 1 para 1 for 6-week . Patient had a vaginal delivery August 25, 2025. A baby boy weighing 7 pounds 9. She is breast-feeding. Lives with her parents and she is doing well very happy no interval complaints .father the baby is not involved. 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 Lungs clear no wheezes. Abdomen is soft nontender. Uterus well involuted. Perineum is intact no lacerations. No swelling. Small lochia. Negative Homans' sign. 2+ DTRs. No edema no swelling. Breasts are soft General Limitations: no limitations General Appearance: alert, in no apparent distress, comfortable, cooperative, healthy appearing, well developed and well groomed ENT ENT exam: Present normal exam, normal oropharynx and mucous membranes moist Chest Chest inspection: Present normal inspection and symmetric chest wall rise Resp Respiratory exam: Present normal lung sounds bilaterally Abdominal Abdominal exam: Present soft and normal bowel sounds Extremities Extremities exam: Present normal inspection and full ROM Psych Psychiatric exam: Present normal affect and normal mood Office Procedures [facility] LOC & Office Proc's Nursing/Assessment Patient Status: Established Patient OB Clinic Nursing Assessment: Medication Reconciliation, Update PMH in EMR and Vital Signs OB Clinic Coordination of Care: Consent,records obtained, informed consent, Education Simp Pt/Fam, Lab and Imaging orders, Results/Orders obtained and Staff clarify orders Established Patient Charge Established Patient Point Assignment: 80 Established Patient Point Charge: EP Level 3 (80-115) Assessment & Plan Diagnosis / Problem List (1) 6 weeks follow-up: Status: Acute Plan Continue to provide support per patient. Increase breast-feeding and help as needed. Increase fluids. Continue prenatals. Discussed diet and regular exercise and patient will return as needed for Pap and control Care Reviewed delivery summary and any complications: Yes Uterus involuted to: 4 below Perineal / incision healing noted: Yes Screened for depression: Yes Depression counseling provided: No Discussed family planning & contraception: Yes Contraception planned: none Counseling on safe resumption of sexual activity: Yes Counseling on gradual excercise: Yes Discussed and concerns (describe), provided support: Yes Referred to software applications specialist: No Counseled on good nutrition, hydration, and self care: Yes Reviewed vaccine status: No Chronic & current problems reconciled on problem list: Yes Infant care discussed; questions answered: feeding Follow up: routine/prn
== END 2025-10-18 10:57 | disposition home or self-care (01) ==
LOC: HODSOBC 09:41
PROVIDERS: Supervising Provider Advanced Practice Midwife; Visit Provider Advanced Practice Midwife
DX: Z39.2 Encounter for routine postpartum follow-up (principal); Z39.1 Encounter for care and examination of lactating mother
CPT/HCPCS: 99213; G0463